=== PATIENT | female | born 1945 | race Caucasian/White ===

== ENCOUNTER → 2018-07-07 00:38 | Outpatient (CLI) | payer OTHER, SELFPAY ==
--- NOTE | 2018-07-07 13:15 | SCREENCT_ITS ---
SYMPTOM/DIAGNOSIS: COPD, J44.9 LOW DOSE LUNG SCREENING CT: CT scan of the chest was performed according to the lung cancer screening protocol. Comparison examinations are 2016 and 2017. The thoracic aorta shows mild atherosclerosis. It is normal caliber. Heart size is within normal limits. No significant pericardial effusion is seen. Coronary artery calcifications are present. No significant mediastinal or hilar adenopathy is identified. No pleural effusion or pneumothorax is identified. There are a few non calcified pulmonary nodules present. The largest is seen in the posterior aspect of the right upper lobe and measures 0.5 cm. in diameter. There is a second 0.4 cm. non calcified pulmonary nodule in the anterolateral aspect of the right upper lobe. These show very slight increase in size compared to the prior examination. There are also faint small ground glass opacities in the lungs bilaterally. No focal consolidating infiltrates are seen. The tracheobronchial tree is unremarkable. No pneumothorax or pleural effusion is present. Degenerative changes are seen in the spine. There is an old L 1 compression fracture deformity which appears stable. IMPRESSION: Category 2. Pulmonary nodules present. Lung-RAD Category: Lung RADS Category 2- Benign Appearance/Behavior
== END ==
PROVIDERS: PCP Nurse Practitioner; Visit Provider Internal Medicine
DX: Z12.2 Encounter for screening for malignant neoplasm of respiratory organs (principal); J44.9 Chronic obstructive pulmonary disease, unspecified; R91.8 Other nonspecific abnormal finding of lung field
CPT/HCPCS: G0297

== ENCOUNTER 2019-07-09 02:34 | Outpatient (CLI) | payer OTHER, SELFPAY ==
--- NOTE | 2019-07-09 13:32 | DI.CTLCSR_ITS ---
SYMPTOMS/DIAGNOSIS: TOBACCO USER, Z72.0 CT CHEST, LOW DOSE LUNG CANCER SCREENING PROTOCOL: CT examination of the chest was performed utilizing low dose lung cancer screening protocol. There are subtle diffuse changes of ground-glass opacity in both lungs. Multiple questionable focal ground-glass and reticular opacities noted, which are unchanged since the previous examination of 07/07/2018. Four and 5 mm right upper lobe intrapulmonary nodules are again noted and unchanged. An 8 mm in diameter pleural-based nodule of the right lung base medially is unchanged. No new nodules seen. No mediastinal or hilar mass or adenopathy. Tracheobronchial tree appears intact. Images obtained through the upper abdomen show grossly unremarkable appearance of liver and spleen. CONCLUSION: Stable pulmonary nodules, the largest an 8 mm medial posterior pleural-based nodule of the right lower lobe. Category 2. Continue annual screening with LDCT in 12 months. Lung-RAD Category: 2- Benign Appearance/Behavior Lung- RAD Management of Findings: Continue annual LDCT screening in 12 months
== END 2019-07-09 02:54 ==
PROVIDERS: PCP Nurse Practitioner; Visit Provider Internal Medicine
DX: R91.8 Other nonspecific abnormal finding of lung field (principal)
CPT/HCPCS: G0297

== ENCOUNTER 2019-09-13 14:28 | Outpatient (REF) | payer OTHER, SELFPAY ==
[2019-09-13 19:05] LABS: ALT 13 U/L (14-59); AST 12 U/L (15-37); Albumin 3.9 g/dL (3.4-5.0); Alkaline Phosphatase 97 U/L (46-116); Anion Gap 8.7 mmol/L (3-11); BUN 16 mg/dL (7-18); Bilirubin, Total 0.5 mg/dL (0.2-1.0); CO2 31.3 mmol/L (21.0-32.0); CREATININE 0.75 mg/dL (0.55-1.02); Calcium 9.4 mg/dL (8.5-10.1); Calculated LDL 137 mg/dL; Chloride 102 mmol/L (98-107); Cholesterol 212 mg/dL (50-200); Glucose 86 mg/dL (70-100); HDL Cholesterol 63 mg/dL (40-60); Potassium 4.6 mmol/L (3.5-5.1); Sodium 142 mmol/L (136-145); Total Protein 6.8 g/dL (6.4-8.2); Triglyceride 61 mg/dL (30-150)
== END 2019-09-13 14:48 ==
LOC: NCHCN 14:28
PROVIDERS: PCP Nurse Practitioner; Visit Provider Nurse Practitioner
DX: E78.5 Hyperlipidemia, unspecified (principal); I73.9 Peripheral vascular disease, unspecified
CPT/HCPCS: 80053; 80061

== ENCOUNTER 2019-12-15 15:08 | Outpatient (REF) | payer OTHER, SELFPAY ==
[2019-12-15 19:30] LABS: Absolute Eosinophil Count 0.29 k/cumm (0.0-0.7); Basophils % 0.3; Eosinophils % 1.3; HCT 47.8 % (36.0-46.0); HGB 15.4 g/dL (12.0-15.5); Immature Grans % 0.4 %; Lymphocytes % 11.2; Mean Corp. HGB Concentration 32.2 g/dL (32.0-36.0); Mean Corpuscular Volume 93.2 fL (80-95); Mean Platelet Volume 12.2 fL (8.0-11.0); Monocytes % 8.9; Neutrophils % 77.9; Platelet Count 249 x1000/uL (130-400); RBC 5.13 m/cumm (4.00-5.20); RBC Distribution Width 16.3 % (11.7-14.6); White Blood Cell Count 22.24 k/cumm (4.4-10.8)
[2019-12-15 19:34] LABS: Absolute Basophil Count 0.07 k/cumm (0.0-0.2); Absolute Lymphocyte Count 2.49 k/cumm (1.2-3.4); Absolute Monocyte Count 1.98 k/cumm (0.11-0.7); Absolute Neutrophil Count 17.32 k/cumm (1.2-6.7)
[2019-12-15 19:41] LABS: Diff Comment Diff Reviewed
[2019-12-15 19:50] LABS: ALT 19 U/L (14-59); AST 17 U/L (15-37); Albumin 3.9 g/dL (3.4-5.0); Alkaline Phosphatase 122 U/L (46-116); Anion Gap 6.4 mmol/L (3-11); BUN 17 mg/dL (7-18); Bilirubin, Total 0.7 mg/dL (0.2-1.0); CO2 31.6 mmol/L (21.0-32.0); Calcium 9.7 mg/dL (8.5-10.1); Chloride 103 mmol/L (98-107); Glucose 86 mg/dL (74-106); Sodium 141 mmol/L (136-145); TSH (W/Ref FT4) 0.88 uIU/mL (0.36-3.74); Total Protein 6.9 g/dL (6.4-8.2)
== END 2019-12-15 15:28 ==
LOC: NCHCN 15:08
PROVIDERS: PCP Nurse Practitioner; Visit Provider Nurse Practitioner
DX: R63.4 Abnormal weight loss (principal)
CPT/HCPCS: 80053; 84443; 85025

== ENCOUNTER 2022-05-28 14:43 | Outpatient (REF) | payer OTHER, SELFPAY ==
[2022-05-28 20:01] LABS: Anion Gap 6.6 mmol/L (3-11); BUN 23 mg/dL (7-18); CO2 30.4 mmol/L (21.0-32.0); CREATININE 0.6 mg/dL (0.55-1.02); Calcium 9.6 mg/dL (8.5-10.1); Chloride 100 mmol/L (98-107); Glucose 88 mg/dL (74-106); Potassium 4.5 mmol/L (3.5-5.1); Sodium 137 mmol/L (136-145)
== END 2022-05-28 14:44 | disposition home or self-care (01) ==
LOC: NCHCN 14:43
PROVIDERS: PCP Nurse Practitioner; Visit Provider Nurse Practitioner Family
DX: J44.9 Chronic obstructive pulmonary disease, unspecified (principal); M54.59 Other low back pain; Z51.81 Encounter for therapeutic drug level monitoring
CPT/HCPCS: 80048

== ENCOUNTER 2023-03-10 20:58 | Outpatient (REF) | payer MEDICARE, SELFPAY ==
[2023-03-10 20:38] LABS: Abs Immature Grans 0.02 10^3/uL (0.0-0.06); Absolute Basophil Count 0.07 10^3/uL (0.0-0.2); Absolute Eosinophil Count 0.26 10^3/uL (0.0-0.7); Absolute Lymphocyte Count 1.74 10^3/uL (1.2-3.4); Absolute Monocyte Count 0.72 10^3/uL (0.1-0.8); Absolute Neutrophil Count 7.56 10^3/uL (1.2-6.7); Basophils % 0.7; Eosinophils % 2.5; HCT 48.9 % (36.0-46.0); HGB 15.9 g/dL (11.2-15.7); Immature Grans % 0.2; Lymphocytes % 16.8; MCH 29.6 pg (27.0-33.0); MCHC 32.5 % (32.0-36.0); MCV 91 fL (80-95); MPV 12.1 fL (8.0-11.0); Monocytes % 6.9; Neutrophils % 72.9; Platelet Count 195 10^3/uL (130-400); RBC 5.37 10^6/uL (3.93-5.22); RDW 13.2 % (11.7-14.6); RDW-SD 44.2 fL; WBC 10.37 10^3/uL (4.4-10.8)
[2023-03-10 20:55] LABS: ALT 10 U/L (14-59); AST 14 U/L (15-37); Albumin 3.9 g/dL (3.4-5.0); Alkaline Phosphatase 104 U/L (46-116); Anion Gap 6.3 mmol/L (3-11); BUN 19 mg/dL (7-18); Bilirubin, Total 0.3 mg/dL (0.2-1.0); CO2 30.7 mmol/L (21.0-32.0); CREATININE 0.8 mg/dL (0.55-1.02); Calcium 9.3 mg/dL (8.5-10.1); Chloride 100 mmol/L (98-107); Estimated GFR 76.31 (mL/min/1.73m2); Glucose 86 mg/dL (74-106); Potassium 4.5 mmol/L (3.5-5.1); Sodium 137 mmol/L (136-145); Total Protein 7.3 g/dL (6.4-8.2)
== END 2023-03-10 20:59 | disposition home or self-care (01) ==
LOC: NCHCN 20:58
PROVIDERS: PCP Nurse Practitioner; Visit Provider Nurse Practitioner Family
DX: R91.8 Other nonspecific abnormal finding of lung field (principal); J44.9 Chronic obstructive pulmonary disease, unspecified; E78.5 Hyperlipidemia, unspecified; M54.89 Other dorsalgia; F17.210 Nicotine dependence, cigarettes, uncomplicated
CPT/HCPCS: 80053; 85025

== ENCOUNTER 2023-05-15 12:40 | Emergency (ER) | payer MEDICARE, SELFPAY ==
[2023-05-15] VITALS (31 sets, daily range): BP systolic 100–149; BP diastolic 44–85; PULSE 71–101; RESP 10–18; TEMP 36.7; O2SAT 93–97
--- NOTE | 2023-05-15 13:00 | DI.CT_ITS ---
Exam(s) CT CHEST PE CTA EXAM: CT CHEST PE CTA CLINICAL HISTORY: hemoptysis, concern for lung CA v PE. TECHNIQUE: Imaging Protocol: CT angiography of the chest was performed using pulmonary embolus mary col. Multi planar reconstructions were performed. CONTRAST MATERIAL: Intravenous: Omnipaque 350 Contrast volume: 100 cc COMPARISON: CT CT CHEST LUNG CANCER SCREEN from 07/09/2019 FINDINGS: CHEST: PULMONARY ARTERIES: There are no intraluminal filling defects to suggest acute pulmonary emboli. LUNGS: There is a concerning mass in the right lobe posterior segment and right middle lobe which luis alberto sures approximately 6 x 6 by 5.5 cm which reaches the pleural surface, not associated with overlying rib destruction but nevertheless suspicious for malignancy. Exhibits a centrally hypodense area with a few vessels noted coursing through this area. Some adjacent infiltrate is also noted.. . There is also a smaller nodular infiltrate in the anterior segment of the right upper lobe which measures 1 x 1 cm.. There are no significant focal findings in the right lower lobe. No pleural effusion. No significant findings in the opposite-left lung. There are no focal findings in the trachea and mainstem bronchi. MEDIASTINUM: There is no obvious hilar adenopathy. There is subcarinal adenopathy evident. Visualiz ed thyroid unremarkable. CARDIAC: Heart size is upper normal. There is no pericardial effusion.Caliber of the thoracic aorta is upper normal limits. There is no significant shift of the interventricular septum. PARTIALLY VISUALIZED UPPERMOST ABDOMEN: There hypodense mass in both adrenal glands. Measures 2.5 x 1.5 cm in the right adrenal gland and slightly smaller in the left adrenal gland. Possibly incidenta l adenomas versus metastatic lesions. The lower most images rib retrocrural adenopathy. The gallbla dder surgically absent. OSSEOUS: Superior endplate compression fracture of L1 is noted, not appearing acute.. IMPRESSION: 1. No evidence of obvious acute pulmonary emboli..However, there is a large mass in the right lung in volving the right middle lobe and right upper lobe and measuring approximately 6 x 6 x 5.5 cm. Suspi cious for malignancy. There is subcarinal adenopathy evident. No obvious hilar adenopathy. 2. There is also a smaller 1 cm concerning nodule anteriorly in the right upper lobe. 3. No findings in the opposite-left lung. No pleural effusions evident. 4. Hypodense nodules in both adrenal glands noted, either incidental adenomas or metastatic disease. Called by myself to ER physician. RADIATION DOSE DELIVERED: 195.73mGy.cm Total DLP DATA REPOSITORY: All CT scans at this facility are submitted to the National Radiology Data Registry (NRDR) Dose Index Registry (DIR) with the [employer] (A[employer]). RADIATION OPTIMIZATION: All CT scans at this facility use at least one of these dose optimization te chniques: automated exposure control; mA and/or kV adjustment per patient size (includes targeted exa ms where dose is matched to clinical indication); or iterative reconstruction.
--- NOTE | 2023-05-15 13:12 | W.ED.GENAD ---
Discharge Plan Disposition Patient Disposition: Home Discharge Details Chief Complaint: RespSymp Clinical Impression: Lung mass, Hemoptysis Primary Care Provider: Chrissie Gaona ED Provider: Joe Luque Home Meds and New Rx's Prescriptions: No Action albuterol sulfate 3 ML solution for nebulization 3 ml UPD PRN PRN montelukast 10 MG tablet 10 mg PO DAILY albuterol sulfate [ProAir HFA] 8.5 GM HFA aerosol inhaler 2 puff Inhalation PRN PRN celecoxib [Celebrex] 100 MG capsule 100 mg PO DAILY azithromycin 250 MG tablet 250 mg PO DIRECTED Qty: 6 0RF Patient Comments: maintenance dosing Rx Instructions: Take two tablets now, then one tablet daily x 4 days. aspirin 325 MG tablet 325 mg PO DAILY fentanyl [Duragesic] 25 MCG patch 72 hour 12.5 mcg Topical DIRECTED sumatriptan succinate [Imitrex] 25 MG tablet 1 tab PO . DIRECTED PRN tramadol 50 MG tablet 50 mg PO QID potassium 99 MG tablet PO DIRECTED Patient Comments: unsure of dose diclofenac sodium [Voltaren] 100 GM gel 1 applic Transdermal PRN PRN omeprazole 20 mg Tablet,Delayed Release (Dr/Ec) PO DAILY Patient Comments: unsure of dose Arnuity Ellipta 200 mcg/actuation blister with device 1 inh INHALATION DAILY Patient Comments: INHALE ONE PUFF BY MOUTH EVERY DAY DIRECTED Stiolto Respimat 2.5-2.5 mcg/actuation mist 2 inh INHALATION DAILY Discharge Instructions Instructions: Hemoptysis (ED) Additional Instructions: Please follow-up with oncology and thoracic surgery team at [facility] early next week, to be scheduled. Please return to the emergency department for any worsening symptoms. Medical Decision Making 78-year-old female history of COPD, smoking, presents with worsening hemoptysis over the last 3 months; patient is afebrile nontoxic normal sinus rhythm with a rate between 80 and 90 on monitor, lungs clear bilaterally, no peripheral edema. Chart review showing history of lung nodule requiring intermittent monitoring, patient also had a bronchoscopy within the past couple of years. Must consider lung cancer versus PE versus pneumonia versus TB versus bronchiectasis versus worsening COPD. Will obtain CT chest, basic labs, disposition pending results and reassess 17: 11 right lung mass concerning for malignancy. Discussed case with patient will be given urgent referral to oncology and thoracic surgery at [facility]. Given home care instructions and strict return precautions. No respiratory stress no further hemoptysis here in the department HPI General Date/Time Provider Initiated Documentation: 05/15/23 12:59. HPI Narrative: 78-year-old female history of COPD, smoking, presents with hemoptysis over the last 3 months now becoming worse. Denies chest pain or shortness of breath however does feel more fatigued. Related Data Home Medications Medication Instructions Recorded Confirmed albuterol sulfate 2.5 mg/3 mL 3 ml UPD PRN PRN 08/13/13 05/15/23 (0.083 %) solution for nebulization albuterol sulfate 90 mcg/actuation 2 puff inhalation PRN PRN 08/13/13 05/15/23 aerosol inhaler (ProAir HFA) azithromycin 250 mg tablet 250 mg PO DIRECTED ##6 08/13/13 05/15/23 celecoxib 100 mg capsule (Celebrex) 100 mg PO DAILY 08/13/13 05/15/23 montelukast 10 mg tablet 10 mg PO DAILY 08/13/13 05/15/23 aspirin 325 mg tablet 325 mg PO DAILY 06/08/14 05/15/23 fentanyl 25 mcg/hr transdermal 12.5 mcg topical DIRECTED 06/08/14 05/15/23 patch (Duragesic) diclofenac sodium 1 % topical gel 1 applic transdermal PRN PRN 06/10/16 05/15/23 (Voltaren) potassium 99 mg tablet mg PO DIRECTED 06/10/16 sumatriptan succinate 25 mg tablet 1 tab PO . DIRECTED PRN 06/10/16 05/15/23 (Imitrex) tramadol 50 mg tablet 50 mg PO QID 06/10/16 05/15/23 fluticasone furoate 200 1 inh inhalation DAILY 05/15/23 05/15/23 mcg/actuation blister powder for inhalation (Arnuity Ellipta) omeprazole 20 mg tablet,delayed mg PO DAILY 05/15/23 release tiotropium 2.5 mcg-olodaterol 2.5 2 inh inhalation DAILY 05/15/23 05/15/23 mcg/actuation mist for inhalation (Stiolto Respimat) Previous Rx's Medication Instructions Recorded azithromycin 250 mg tablet 250 mg PO DIRECTED ##6 08/13/13 Allergies Allergy/AdvReac Type Severity Reaction Status Date / Time codeine AdvReac Severe respiratory Unverified 05/15/23 13:14 depression lactose AdvReac Severe Unverified 05/15/23 13:14 tetanus and diphtheria AdvReac Intermediate Contraindic Unverified 05/15/23 13:14 toxoids ated [tetanus & diphtheria toxoids] hydrocodone bitartrate AdvReac Unknown Nausea Unverified 05/15/23 13:14 [From Vicodin] naproxen sodium [From Aleve] AdvReac Unknown Nausea Unverified 05/15/23 13:14 polyethylene glycol 3350 AdvReac Unknown Unverified 05/15/23 13:14 [From Miralax] General Stated Complaint: RespSymp NAILA: 3 Review of Systems Narrative: Review of Systems Constitutional: Fatigue Eyes: negative ENT: negative Cardiovascular: negative Respiratory: Hemoptysis Gastrointestinal: negative : negative Musculoskeletal: negative Skin: negative Neurologic: negative Psych: negative PFSH All Active Problems (Updated 05/15/23 @ 17:14 by Joe Luque MD) Lung mass (Acute) Hemoptysis (Acute) Social History Smoking/Tobacco Use Status: Current every day Tobacco Type: cigarettes Smoking risk assessment performed?: Yes Alcohol Intake: never Drug use: Never Do you feel safe at home: Yes Do you feel safe in your relationship?: Yes Exam Narrative Exam Narrative: Physical Examination General: alert, awake, cooperative, resting comfortably, no acute distress HEENT: normocephalic, atraumatic; PERRL, EOM intact, conjunctiva normal; no nasal discharge; moist mucous membranes, oral and pharyngeal mucosa normal, tolerating secretions Neck: supple, trachea midline; full ROM Chest: normal to inspection Respiratory: normal respiratory effort, speaking in full sentences, clear to auscultation, no wheezing, rales or rhonchi Cardiac: regular rate, regular rhythm, S1S2 intact, no murmurs rubs or gallops GI: abdomen soft, non-tender, non-distended; no palpable mass or hepatosplenomegaly Skin: no lesions, rashes or trauma appreciated Neuro: AAOx3, normal speech, moving all extremities Psych: Appropriate mood and affect Course Vital Signs Vital signs: Vital Signs Temperature 36.7 C 05/15/23 12:49 Pulse 101 H 05/15/23 12:49 Respiratory Rate 18 05/15/23 12:49 Blood Pressure 137/75 05/15/23 12:49 Pulse Oximetry 95 05/15/23 12:49 Temperature 36.7 C 05/15/23 12:49 Temperature Source Tympanic 05/15/23 12:49 Pulse 101 H 05/15/23 12:49 Respiratory Rate 18 05/15/23 12:49 Respiratory Effort Normal 05/15/23 13:05 Respiratory Depth Normal 05/15/23 13:05 Blood Pressure 137/75 05/15/23 12:49 Pulse Oximetry 95 05/15/23 12:49 Oxygen Delivery Method Room Air 05/15/23 12:49 Oxygen Flow Rate 0 05/15/23 12:49 Pain Level 0 05/15/23 12:49
[2023-05-15 13:32] LABS: Abs Immature Grans 0.05 10^3/uL (0.0-0.06); Absolute Basophil Count 0.08 10^3/uL (0.0-0.2); Absolute Eosinophil Count 0.15 10^3/uL (0.0-0.7); Absolute Lymphocyte Count 1.46 10^3/uL (1.2-3.4); Absolute Monocyte Count 0.56 10^3/uL (0.1-0.8); Absolute Neutrophil Count 7.13 10^3/uL (1.2-6.7); Basophils % 0.8; Eosinophils % 1.6; HGB 15.8 g/dL (11.2-15.7); Immature Grans % 0.5; Lymphocytes % 15.5; MCH 29.2 pg (27.0-33.0); MCHC 32.9 % (32.0-36.0); MCV 89 fL (80-95); MPV 10.8 fL (8.0-11.0); Monocytes % 5.9; Neutrophils % 75.7; Platelet Count 252 10^3/uL (130-400); RBC 5.42 10^6/uL (3.93-5.22); RDW 13.1 % (11.7-14.6); RDW-SD 42.7 fL; WBC 9.43 10^3/uL (4.4-10.8)
[2023-05-15 13:58] LABS: Prothrombin Time 9.7 sec (9.3-11.0)
[2023-05-15 14:28] LABS: AST 13 U/L (15-37); Alkaline Phosphatase 136 U/L (46-116); Anion Gap 9.9 mmol/L (3-11); BUN 18 mg/dL (7-18); Bilirubin, Total 0.5 mg/dL (0.2-1.0); CO2 30.1 mmol/L (21.0-32.0); CREATININE 0.7 mg/dL (0.55-1.02); Calcium 9.4 mg/dL (8.5-10.1); Chloride 100 mmol/L (98-107); Estimated GFR 89.58 (mL/min/1.73m2); Glucose 96 mg/dL (74-106); Potassium 4.3 mmol/L (3.5-5.1); Sodium 140 mmol/L (136-145); Total Protein 8.4 g/dL (6.4-8.2)
[2023-05-15 14:37] LABS: ALT 14 U/L (14-59)
[2023-05-15] MEDS: Normal Saline - Diluent 50 ML VIAL IJ (14:56)
[2023-05-15] MEDS: Omnipaque 350 MG/ML 100 ML BTL IJ (14:57)
--- NOTE | 2023-05-15 16:26 | NUR.NOTE ---
Addendum entered by Karla Alas 05/15/23 16:27: Referral given to Care Management to [facility] for new diagnosis lung cancer to be seen next week. Original Note: Nursing Note: Referral given to Care Management to [facility] for new diagnosis lung cancer to be seen next week.
[2023-05-20 11:42] LABS: TB Interpretation Negative (Negative)
--- NOTE | 2023-05-22 11:57 | CMACTNOTE_ITS ---
Date of service: 05/16/23 Time of Service: 11:57 Care Management Activity Note Activity Note Text Activity Note Text: Bere is seen in the ED for a lung mass and hemoptysis. At the request of ED provider, CM coordinates referrals on 05/16/23 to [facility] Oncology and to [facility] Thor[facility] Surgery to assist patient in obtaining appointments for further evaluation and treatment.
--- NOTE | 2023-05-22 11:57 | PDOC.CMACT ---
Date of service: 05/16/23 Time of Service: 11:57 Care Management Activity Note Activity Note Text Activity Note Text: Bere is seen in the ED for a lung mass and hemoptysis. At the request of ED provider, CM coordinates referrals on 05/16/23 to [facility] Oncology and to [facility] Thoracic Surgery to assist patient in obtaining appointments for further evaluation and treatment.
== END 2023-05-15 17:21 | disposition home or self-care (01) ==
PROVIDERS: Emergency Provider Emergency Medicine; PCP Nurse Practitioner
DX: R91.8 Other nonspecific abnormal finding of lung field (principal); R04.2 Hemoptysis; J44.9 Chronic obstructive pulmonary disease, unspecified; F17.210 Nicotine dependence, cigarettes, uncomplicated
CPT/HCPCS: 36415; 71275; 80053; 99285; 85025; 85610; 85730; 86480; 99284; J3490